=== PATIENT | male | born 1960 | race Caucasian/White ===

== ENCOUNTER 2016-09-10 19:46 | Emergency (ER) | payer MEDICAID ==
[2016-09-10 20:07] VITALS: BP 120/78; PULSE 78; RESP 16; TEMP 97.9; O2SAT 98
[2016-09-10] MEDS ORDERED: Pantoprazole 40 mg EC Tab PO STA (20:52)
[2016-09-10] MEDS ORDERED: Alum-Mag Hydrox-Simethicone Susp (30 mL) PO STA (20:52)
[2016-09-10] MEDS ORDERED: Alum-Mag Hydrox-Simethicone Susp (30 mL) ONE (21:16)
[2016-09-10] MEDS ORDERED: Pantoprazole 40 mg EC Tab PO ONE (21:16)
--- NOTE | 2016-09-10 21:18 | ED PDOC ---
HPI: Abdomen Time Seen by Provider: 09/10/16 20:11 Chief Complaint (Nursing): Abdominal Pain Chief Complaint (Provider): Abdominal Pain History Per: Patient History/Exam Limitations: no limitations Onset/Duration Of Symptoms: Days (2x days) Current Symptoms Are (Timing): Still Present Severity: Moderate Location Of Pain/Discomfort: Epigastric Associated Symptoms: Other (black stool, lightheaded, headache, fatigue). denies: Nausea, Vomiting, Diarrhea, Constipation Exacerbating Factors: Food Additional Complaint(s): 56 year old male with no pertinent medical history presents to the ED with complaints of non radiating epigastric abdominal pain that started 2x days ago associated with black stool, fatigue, lightheadedness, and headaches. He reports that it worsen with eating and taking Rolaids and pepto-bismol with no relief. He denies having nausea, vomiting, diarrhea, constipation, fever, chill , and weight loss. PMD: Keon Morelos in [place] and Dr. Kennedy. Past Medical History Reviewed: Historical Data, Nursing Documentation, Vital Signs Vital Signs: Last Vital Signs Temp 97.9 F 09/10/16 20:00 Pulse 78 09/10/16 20:00 Resp 16 09/10/16 20:00 BP 120/78 09/10/16 20:00 Pulse Ox 98 09/10/16 22:44 - Medical History PMH: Hypercholesterolemia (controlled with diet, runs in his family) - Surgical History Surgical History: No Surg Hx - Family History Family History: States: Other - Social History Current smoker - smoking cessation education provided: No Alcohol: None Drugs: Denies - Home Medications Home Medications: Ambulatory Orders Medication Instructions Recorded Omeprazole Magnesium [Prilosec Otc] 20 mg PO DAILY #30 tcp 09/10/16 Ondansetron ODT [Zofran ODT] 1 odt PO Q6 PRN #20 odt 09/10/16 - Allergies Allergies/Adverse Reactions: Allergies Allergy/AdvReac Type Severity Reaction Status Date / Time Sulfa (Sulfonamide Allergy Verified 09/10/16 20:44 Antibiotics) Review of Systems ROS Statement: Except As Marked, All Systems Reviewed And Found Negative Constitutional: Positive for: Other (fatigue). Negative for: Fever, Chills, Weight loss Cardiovascular: Positive for: Light Headedness. Negative for: Chest Pain Respiratory: Negative for: Shortness of Breath Gastrointestinal: Positive for: Abdominal Pain (epigastric), Other (black stool) . Negative for: Nausea, Vomiting, Diarrhea, Constipation Neurological: Positive for: Headache Physical Exam - Reviewed Nursing Documentation Reviewed: Yes Vital Signs Reviewed: Yes - Physical Exam Appears: Positive for: Well, Non-toxic, No Acute Distress Head Exam: Positive for: ATRAUMATIC, NORMOCEPHALIC Skin: Positive for: Normal Color, Warm, Dry Eye Exam: Positive for: Normal appearance Neck: Positive for: Normal Cardiovascular/Chest: Positive for: Regular Rate, Rhythm Respiratory: Positive for: Normal Breath Sounds. Negative for: Respiratory Distress Gastrointestinal/Abdominal: Positive for: Tenderness (epigastric tenderness to palpation). Negative for: Mass, Guarding, Rebound, Other (negative mcburney's and lyons's point tenderness) Neurologic/Psych: Positive for: Alert, Oriented (3x) - Laboratory Results Result Diagrams: 09/10/16 21:16 09/10/16 21:16 - ECG O2 Sat by Pulse Oximetry: 98 (RA) Pulse Ox Interpretation: Normal Medical Decision Making Medical Decision Makin:11 Initial impression: 56 year old male with abdominal pain. Initial plan: * type and screen * CMP * lipase * udip * CBC * PT/PTT * lidocaine 2% viscous 10ml PO * maalox plus 30ml PO * protonix EC tab 40mg PO * ortho BP * reevaluation [facility] Final Radiology Report Call: [phone] assistance Online chat: [email or web address] Patient Name: MILADYS DIAZ (Age): 1960 56 Gender: M Date of Exam: 09/10/2016 Referring Physician: Jyoti Siddiqui # of Images: 46 Ordered As: US GALLBLADDER HEPATIC CONFIDENTIALITY STATEMENT This report is intended only for use by the referring physician, and only in accordance with law. If you received this in error, call [phone]. Page 1 of 1 EXAM: US Abdomen Limited, Right Upper Quadrant CLINICAL HISTORY: 56 years old, male; Pain; Abdominal pain; Epigastric; Additional info: Abd pain TECHNIQUE: Real-time ultrasound of the right upper quadrant with image documentation. COMPARISON: No relevant prior studies available. FINDINGS: Liver: Normal echogenicity. No mass. No intrahepatic bile duct dilatation. Gallbladder: No gallstones. No wall thickening. No pericholecystic fluid. No sonographic Lyons's sign. Common bile duct: No dilatation. No stones. Pancreas: Apparent slight prominence. Questionable trace peripancreatic fluid. Right kidney: Normal echogenicity. Small cyst. No hydronephrosis. IMPRESSION: 1. Apparent slight prominence of pancreas with questionable trace peripancreatic fluid. Correlate with amylase/lipase levels to evaluate for pancreatitis. 2. Incidental/non-acute findings are described above. Thank you for allowing us to participate in the care of your patient. Dictated and Authenticated by: Pb Nickerson MD 09/10/2016 10:37 PM Eastern Time ([place] & [place]) Lipase and amylase only minimally elevated LDH wnl. Normal WBC. Pt has mild pancreatitis and will dc home with strict instructions of liquid diet and rest. Large po fluid hydration. To rter for worsening symptoms. otherwise f/u pmd. Scribe Attestation: Documented by Mariah Bolivar, acting as a scribe for Jyoti Siddiqui MD. Provider Scribe Attestation: All medical record entries made by the Scribe were at my direction and personally dictated by me. I have reviewed the chart and agree that the record accurately reflects my personal performance of the history, physical exam, medical decision making, and the department course for this patient. I have also personally directed, reviewed, and agree with the discharge instructions and disposition. Disposition - Clinical Impression Clinical Impression: Pancreatitis - Disposition Referrals: [facility] [Provider Group] Jamar Kennedy MD [Staff Provider] - Disposition: Routine/Home Disposition Time: 23:00 Condition: STABLE Additional Instructions: VISITA HOLLEY DOCTOR EN 2-3 WATTS A [address] [place] [address] [address] [place] O NO PUEDE BEBER Prescriptions: Omeprazole Magnesium [Prilosec Otc] 20 mg PO DAILY #30 tcp Ondansetron ODT [Zofran ODT] 1 odt PO Q6 PRN #20 odt PRN Reason: Nausea/Vomiting Instructions: Pancreatitis (ED) Print Language: VINCENTIAN
[2016-09-10 21:33] LABS: BASO % 0.6 % (0.0-2.0); EOS # 0.1 K/uL (0.0-0.7); EOS % 1.1 % (0.0-4.0); HEMATOCRIT 46.7 % (35.0-51.0); LYMPH # 1.9 K/uL (1.0-4.3); LYMPH % 23.3 % (20.0-40.0); MEAN CELL VOLUME 96.7 fl (80.0-94.0); MEAN CORPUSCULAR HEMOGLOBIN 32.2 pg (27.0-31.0); MEAN CORPUSCULAR HGB CONC 33.3 g/dL (33.0-37.0); MEAN PLATELET VOLUME 7.1 fl (7.2-11.7); MONO # 0.6 K/uL (0.0-0.8); MONO % 7.1 % (0.0-10.0); NEUT # 5.6 K/uL (1.8-7.0); NEUT % 67.9 % (50.0-75.0); RED CELL DISTRIBUTION WIDTH 13.4 % (11.5-14.5); WHITE BLOOD COUNT 8.2 K/uL (4.8-10.8)
[2016-09-10 21:39] LABS: PARTIAL THROMBOPLASTIN TIME 30.9 Seconds (25.6-37.1)
[2016-09-10 21:59] LABS: ALB/GLOB RATIO 1.3 (1.0-2.1); ALKALINE PHOSPHATASE 89 U/L (38-126); ALT/SGPT 34 U/L (21-72); AST/SGOT 28 U/L (17-59); BILIRUBIN,TOTAL 1.4 mg/dl (0.2-1.3); BLOOD UREA NITROGEN 20 mg/dl (9-20); CALCIUM 8.5 mg/dL (8.4-10.2); CARBON DIOXIDE 27 mmol/L (22-30); CHLORIDE 103 mmol/L (98-107); GFR AFRICAN-AMERICAN > 60; GLUCOSE,RANDOM 100 mg/dL (75-110); LIPASE 312 U/L (23-300); POTASSIUM 4.8 MMOL/L (3.6-5.0); SODIUM 136 mmol/l (132-148); TOTAL PROTEIN 6.8 G/DL (6.3-8.2)
--- NOTE | 2016-09-10 22:38 | US ---
EXAM: US Abdomen Limited, Right Upper Quadrant CLINICAL HISTORY: 56 years old, male; Pain; Abdominal pain; Epigastric; Additional info: Abd pain TECHNIQUE: Real-time ultrasound of the right upper quadrant with image documentation. COMPARISON: No relevant prior studies available. FINDINGS: Liver: Normal echogenicity. No mass. No intrahepatic bile duct dilatation. Gallbladder: No gallstones. No wall thickening. No pericholecystic fluid. No sonographic Lyons's sign. Common bile duct: No dilatation. No stones. Pancreas: Apparent slight prominence. Questionable trace peripancreatic fluid. Right kidney: Normal echogenicity. Small cyst. No hydronephrosis. IMPRESSION: 1. Apparent slight prominence of pancreas with questionable trace peripancreatic fluid. Correlate with amylase/lipase levels to evaluate for pancreatitis. 2. Incidental/non-acute findings are described above.
[2016-09-10] MEDS ORDERED: Sodium Chloride 0.9% 1,000 ML IV STA (22:41)
[2016-09-10 22:52] LABS: AMYLASE 139 U/L (30-110)
== END 2016-09-10 23:47 | disposition home or self-care (01) ==
LOC: H.ER 19:46
DX: K85.90 Acute pancreatitis without necrosis or infection, unspecified (principal); R42 Dizziness and giddiness; R53.81 Other malaise